=== PATIENT | male | born 1985 | race Caucasian/White ===

== ENCOUNTER 2017-05-18 21:28 | Emergency (ER) | payer OTHER ==
[2017-05-18 21:46] VITALS: BMI 36.3
[2017-05-18] MEDS ORDERED: DIPHTH,PERTUSS(ACELL),TET 0.5 ML DISP.SYRIN IM ONE (21:46)
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
[2017-05-19] MEDS ORDERED: ACETAMINOPHEN 325 MG TABLET (FP) PO ONE (00:56)
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
[2017-05-19] MEDS ORDERED: ACETAMINOPHEN 325 MG TABLET (FP) ONE (00:59)
[2017-05-19 01:28] VITALS: BP 142/96; PULSE 98; TEMP 98
== END 2017-05-19 02:34 | disposition home or self-care (01) ==
LOC: JER 21:28
PROC: 3E0234Z Introduction of Serum, Toxoid and Vaccine into Muscle, Percutaneous Approach (ICD-10-PCS; principal; 2017-05-18)
DX: S00.83XA Contusion of other part of head, initial encounter (principal); S00.31XA Abrasion of nose, initial encounter; Y04.2XXA Assault by strike against or bumped into by another person, initial encounter; Y93.89 Activity, other specified; Y92.198 Other place in other specified residential institution as the place of occurrence of the external cause; Y99.8 Other external cause status; F70 Mild intellectual disabilities
CPT/HCPCS: 70450-TC; 70486-TC; 90715; 99282-25

== ENCOUNTER 2017-08-09 16:41 | Emergency (ER) | payer OTHER ==
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
[2017-08-09 16:49] VITALS: BP 134/83; PULSE 84; TEMP 98; BMI 36.3
[2017-08-09] MEDS ORDERED: TETANUS AND DIPHTHERIA TOXOID 0.5 ML DISP.SYRIN IM ONE (16:50)
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
[2017-08-09] MEDS ORDERED: DIPHTH,PERTUSS(ACELL),TET 0.5 ML DISP.SYRIN IM ONE (18:02)
== END 2017-08-09 18:23 | disposition home or self-care (01) ==
LOC: JERFT 16:41
PROC: 3E0234Z Introduction of Serum, Toxoid and Vaccine into Muscle, Percutaneous Approach (ICD-10-PCS; principal; 2017-08-09)
DX: S00.87XA Other superficial bite of other part of head, initial encounter (principal); Y04.1XXA Assault by human bite, initial encounter; Y93.89 Activity, other specified; Y92.198 Other place in other specified residential institution as the place of occurrence of the external cause; Y99.8 Other external cause status; F70 Mild intellectual disabilities; F20.9 Schizophrenia, unspecified; F91.8 Other conduct disorders
CPT/HCPCS: 90471; 90715; 99281-25

== ENCOUNTER 2018-04-14 19:26 | Observation (INO) | payer OTHER ==
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
[2018-04-14] MEDS ORDERED: ONDANSETRON 4 MG/2 ML VIAL ONE (19:43)
[2018-04-14] MEDS ORDERED: morphine CARPU-JECT 4 MG/1 ML DISP.SYRIN IVPUSH ONE (19:48)
[2018-04-14] MEDS ORDERED: KETOROLAC TROMETHAMINE 30 MG/1 ML VIAL IVPUSH ONE (19:48)
[2018-04-14] MEDS ORDERED: KETOROLAC TROMETHAMINE 30 MG/1 ML VIAL ONE (19:52)
[2018-04-14] MEDS ORDERED: morphine SULFATE 4 MG/ML VIAL ONE (19:52)
[2018-04-14] MEDS ORDERED: SODIUM CHLORIDE 1,000 ML IV SCH (20:00)
[2018-04-14 20:24] LABS: BASO % 1.1 % (0-2.0); EOS % 1.1 % (0-4.5); HEMATOCRIT 40.5 % (35.4-49); HEMOGLOBIN 13.6 GM/dl (11.7-16.9); LYMPH % 14.6 % (8-40); MCH 29.4 pg (25.7-33.7); MCHC 33.6 g/dl (32.0-35.9); MEAN CELL VOLUME 87.4 fl (80-96); MEAN PLT VOLUME 8.3 fl (7.5-11.1); NEUT % 71.2 % (42.8-82.8); PLATELET COUNT 196 K/MM3 (134-434); RBC 4.64 M/mm3 (4.00-5.60); RDW 13.4 % (11.9-15.9); WHITE BLOOD COUNT 9.5 K/mm3 (4.0-10.8)
[2018-04-14 20:35] LABS: ALBUMIN 3.7 g/dl (3.5-5.0); ALK PHOS 40 U/L (32-92); ANION GAP 8 MMOL/L (8-16); BILIRUBIN,TOTAL 1.1 mg/dl (0.2-1.0); BLOOD UREA NITROGEN 12 mg/dl (7-18); CALCIUM 8.6 mg/dl (8.4-10.2); CHLORIDE 102 mmol/L (98-107); CO2 28 mmol/L (22-28); CREATININE 1.1 mg/dl (0.6-1.3); GLUCOSE,RANDOM 117 mg/dl (74-106); POTASSIUM 3.9 mmol/L (3.5-5.1); SGOT/AST 23 U/L (10-42); SGPT/ALT 24 U/L (10-40); SODIUM 138 mmol/L (136-145); TOT PROT 7.5 g/dl (6.4-8.3)
[2018-04-14 22:15] LABS: LIPASE 84 U/L (73-393)
[2018-04-14] MEDS ORDERED: PIPERACILLIN/TAZOB 4.5 GM 4.5 GM in DEXTROSE 5%-WATER 100 ML IVPB ONE (22:21)
[2018-04-14] MEDS ORDERED: PIPERACILLIN/TAZOBACTAM 4.5 GM VIAL IVPB ONE (22:23)
[2018-04-14 22:50] LABS: PH,URINE 6.5 (4.5-8); URINE APPEARANCE Clear; URINE BILIRUBIN 1+ (NEGATIVE); URINE COLOR Light; URINE GLUCOSE (UA) Negative (NEGATIVE); URINE KETONE Negative (NEGATIVE); URINE LEUK ESTERASE Negative (NEGATIVE); URINE NITRITE Negative (NEGATIVE); URINE PROTEIN 1+ (NEGATIVE); URINE UROBILINOGEN >=8.0 E.U./dl (0.2-1.0)
[2018-04-14 23:01] LABS: URINE BACTERIA 1+ /hpf (NEGATIVE); URINE RBC 0-1 /hpf (0-3); URINE WBC 0-2 (0-2)
[2018-04-15] MEDS: DEXTROSE 5%-0.45% SALINE 1,000 ML IV SCH (01:15)
[2018-04-15 01:18] VITALS: BMI 33.9
[2018-04-15 08:56] LABS: BASO % 0.3 % (0-2.0); EOS % 1.8 % (0-4.5); HEMATOCRIT 36.1 % (35.4-49); HEMOGLOBIN 12.2 GM/dl (11.7-16.9); LYMPH % 16.4 % (8-40); MCH 29.7 pg (25.7-33.7); MCHC 33.7 g/dl (32.0-35.9); MEAN PLT VOLUME 8.4 fl (7.5-11.1); MONO % 17.5 % (3.8-10.2); PLATELET COUNT 177 K/MM3 (134-434); RBC 4.11 M/mm3 (4.00-5.60); RDW 13.4 % (11.9-15.9)
--- NOTE | 2018-04-15 10:08 | HP ---
CHIEF COMPLAINT:abd pain PCP: HISTORY OF PRESENT ILLNESS: Julio C Juarez is a 33 year old male, presented to ED yesterday for evaluation of abdominal pain. History given by caregiver due to patients mental disability. The patients caregiver reported that the patients pain began Thurs and is most prominent in the right upper quadrant. The patients caregiver also noted that the patient has had a decreased appetite with his last meal being last night. The caregiver reported that the patient went for routine blood work and the caregiver was told that the patient had an increased white count. patient seen at bedside this morning, no caregiver present, pt points to Right side of abd, states "I have pain." , with eyes closed, non-tender on palpation, no facial grimacing. denies n/v, chills, headache, dizziness, Labs reviewed this am, No leukocytosis, afebrile ER course was notable for: (1)elevated Bili (2)US showing cholelithiasis w/some GB thickening (3)CT scan thickening of transverse colon, no perforation Recent Travel: PAST MEDICAL HISTORY:mild mental retardation, Schizophrenia, disruptive behaviour disorder, PAST SURGICAL HISTORY:none Social History: Lives at [facility] Smoking:denies Alcohol:denies Drugs: denies Family History: Allergies No Known Allergies Allergy (Verified 08/09/17 16:44) HOME MEDICATIONS: Home Medications Medication Instructions Recorded BUPROPion HCL "SR" [Wellbutrin Sr 150 mg PO DAILY 01/12/15 -] Benztropine Mesylate [Cogentin -] 0.5 mg PO BID 01/12/15 Cholecalciferol (Vitamin D3) 2,000 unit PO DAILY 01/12/15 [Vitamin D3 -] Lurasidone HCl [Latuda] 120 mg PO HS 01/12/15 [place]-3S/Dha/Epa/Fish Oil [Fish 1 each PO BID 01/12/[address] 1,000 mg Softgel] Terbinafine [Lamisil At] 6 gm TP BID 01/12/15 Bupropion HCl [Wellbutrin Xl -] 150 mg PO DAILY 04/14/18 Divalproex Sodium [Divalproex 1,000 mg PO BID 04/14/18 Sodium ER] [place] Carbonate [Eskalith -] 450 mg PO DAILY 04/14/18 Selenium Sulfide [Selenium Sulfide 1 applic TP WEEKLY 04/14/18 2.25% Shampoo] REVIEW OF SYSTEMS CONSTITUTIONAL: Absent: fever, chills, diaphoresis, generalized weakness, malaise, loss of appetite, weight change HEENT: Absent: rhinorrhea, nasal congestion, throat pain, throat swelling, difficulty swallowing, mouth swelling, ear pain, eye pain, visual changes CARDIOVASCULAR: Absent: chest pain, syncope, palpitations, irregular heart rate, lightheadedness , peripheral edema RESPIRATORY: Absent: cough, shortness of breath, dyspnea with exertion, orthopnea, wheezing, stridor, hemoptysis GASTROINTESTINAL: Absent: abdominal pain, abdominal distension, nausea, vomiting, diarrhea, constipation, melena, hematochezia GENITOURINARY: Absent: dysuria, frequency, urgency, hesitancy, hematuria, flank pain, genital pain MUSCULOSKELETAL: Absent: myalgia, arthralgia, joint swelling, back pain, neck pain SKIN: Absent: rash, itching, pallor HEMATOLOGIC/IMMUNOLOGIC: Absent: easy bleeding, easy bruising, lymphadenopathy, frequent infections ENDOCRINE: Absent: unexplained weight gain, unexplained weight loss, heat intolerance, cold intolerance NEUROLOGIC: Absent: headache, focal weakness or paresthesias, dizziness, unsteady gait, seizure, mental status changes, bladder or bowel incontinence PSYCHIATRIC: Absent: anxiety, depression, suicidal or homicidal ideation, hallucinations. PHYSICAL EXAMINATION Vital Signs - 24 hr 04/14/18 04/14/18 04/15/18 19:42 23:47 00:05 Temperature 98.7 F 98.2 F 98.1 F Pulse Rate 92 H 80 Pulse Rate [ 77 Radial] Respiratory 18 16 16 Rate Blood Pressure 124/73 119/81 Blood Pressure 125/84 [Arm] O2 Sat by Pulse 98 100 Oximetry (%) 04/15/18 04/15/18 04/15/18 01:01 06:48 09:00 Temperature 98.2 F 98.7 F Pulse Rate 80 77 Pulse Rate [ Radial] Respiratory 16 16 16 Rate Blood Pressure 119/81 111/68 Blood Pressure [Arm] O2 Sat by Pulse 99 99 Oximetry (%) GENERAL: Awake, alert, and fully oriented, in no acute distress. HEAD: Normal with no signs of trauma. EYES: Pupils equal, round and reactive to light, extraocular movements intact, sclera anicteric, conjunctiva clear. No lid lag. EARS, NOSE, THROAT: Ears normal, nares patent, oropharynx clear without exudates. Moist mucous membranes. NECK: Normal range of motion, supple without lymphadenopathy, JVD, or masses. LUNGS: Breath sounds equal, clear to auscultation bilaterally. No wheezes, and no crackles. No accessory muscle use. HEART: Regular rate and rhythm, normal S1 and S2 without murmur, rub or gallop. ABDOMEN: Soft, nontender, not distended, normoactive bowel sounds, no guarding, no rebound, no masses. No hepatomegaly or splenomegaly. MUSCULOSKELETAL: Normal range of motion at all joints. No bony deformities or tenderness. No CVA tenderness. UPPER EXTREMITIES: 2+ pulses, warm, well-perfused. No cyanosis. No clubbing. No peripheral edema. LOWER EXTREMITIES: 2+ pulses, warm, well-perfused. No calf tenderness. No peripheral edema. NEUROLOGICAL: Cranial nerves II-XII intact. Normal speech. Normal gait. PSYCHIATRIC: Cooperative. Good eye contact. Appropriate mood and affect. SKIN: Warm, dry, normal turgor, no rashes or lesions noted, normal capillary refill. Laboratory Results - last 24 hr 04/14/18 04/14/18 04/14/18 19:46 19:46 22:44 WBC 9.5 RBC 4.64 Hgb 13.6 Hct 40.5 MCV 87.4 MCH 29.4 MCHC 33.6 RDW 13.4 Plt Count 196 MPV 8.3 Absolute Neuts (auto) 6.8 Neutrophils % 71.2 Lymphocytes % 14.6 Monocytes % 12.0 H Eosinophils % 1.1 Basophils % 1.1 Sodium 138 Potassium 3.9 Chloride 102 Carbon Dioxide 28 Anion Gap 8 BUN 12 Creatinine 1.1 Creat Clearance w eGFR > 60 Random Glucose 117 H Calcium 8.6 Total Bilirubin 1.1 H AST 23 ALT 24 Alkaline Phosphatase 40 Total Protein 7.5 Albumin 3.7 Lipase 84 Urine Color Light Urine Appearance Clear Urine pH 6.5 Ur Specific [place] 1.020 Urine Protein 1+ H Urine Glucose (UA) Negative Urine Ketones Negative Urine Blood Negative Urine Nitrite Negative Urine Bilirubin 1+ H Urine Urobilinogen >=8.0 e.u./dl Ur Leukocyte Esterase Negative Urine RBC 0-1 Urine WBC 0-2 Urine Bacteria 1+ 04/15/18 07:25 WBC 6.0 RBC 4.11 Hgb 12.2 Hct 36.1 MCV 88.0 MCH 29.7 MCHC 33.7 RDW 13.4 Plt Count 177 MPV 8.4 Absolute Neuts (auto) 3.8 Neutrophils % 64.0 Lymphocytes % 16.4 Monocytes % 17.5 H Eosinophils % 1.8 Basophils % 0.3 Sodium Potassium Chloride Carbon Dioxide Anion Gap BUN Creatinine Creat Clearance w eGFR Random Glucose Calcium Total Bilirubin AST ALT Alkaline Phosphatase Total Protein Albumin Lipase Urine Color Urine Appearance Urine pH Ur Specific [place] Urine Protein Urine Glucose (UA) Urine Ketones Urine Blood Urine Nitrite Urine Bilirubin Urine Urobilinogen Ur Leukocyte Esterase Urine RBC Urine WBC Urine Bacteria ASSESSMENT/PLAN: Julio C Juarez is a 33 year old male medical condition Schizophrenia, mild MR , disruptive behaviour admitted under observation for Admitting Daignosis Cholelithiasis Active Problems Schizophrenia Psychotic disorder A/P: #RUQ abd pain-Cholelithiasis -NPO -IVF -paing mgt -Sx consult -US, CT scan reviewed -cont with IV zosyn BID -blood cx pending #Schizphrenia #Psyche Disorder -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 - New Patient This patient is new to me today: Yes Date on this admission: 04/15/18 - Critical Care Critical Care patient: No
[2018-04-15] MEDS ORDERED: PIPERACILLIN/TAZOB 4.5 GM 4.5 GM in DEXTROSE 5%-WATER 100 ML IVPB SCH (10:30)
[2018-04-15] MEDS ORDERED: DIVALPROEX NA *ER* EXTEND REL 500 MG TABLET.SA (FP) PO SCH (10:30)
[2018-04-15] MEDS: BENZTROPINE MESYLATE 0.5 MG TABLET (FP) PO SCH ×2 (10:49→23:55)
[2018-04-15] MEDS ORDERED: PT OWN MED DRAWER 7, Y5N ONE ×3 (12:43→23:58)
[2018-04-15] MEDS ORDERED: PIPERACILLIN/TAZOBACTAM 4.5 GM VIAL IVPB ONE (12:44)
[2018-04-15] MEDS ORDERED: DEXTROSE 5%-WATER 100 ML IVPB ONE (12:44)
[2018-04-15] MEDS: DIVALPROEX SODIUM 500 MG TABLET E.C. PO SCH ×2 (13:30→22:25)
[2018-04-15] MEDS ORDERED: CIPROFLOXACIN 400 MG/D5W 400 MG/200 ML IVPB IVPB ONE (17:15)
[2018-04-15] MEDS ORDERED: CIPROFLOXACIN 400 MG/D5W 400 MG/200 ML IVPB IVPB SCH (22:00)
[2018-04-15] MEDS ORDERED: LURASIDONE HCL 40 MG TABLET PO SCH (22:00)
[2018-04-16] MEDS: DEXTROSE 5%-0.45% SALINE 1,000 ML IV SCH
[2018-04-16] MEDS ORDERED: PT OWN MED DRAWER 7, Y5N ONE (09:32)
[2018-04-16 09:41] LABS: BASO % 0.6 % (0-2.0); EOS % 2.6 % (0-4.5); HEMATOCRIT 36.8 % (35.4-49); HEMOGLOBIN 11.9 GM/dl (11.7-16.9); LYMPH % 22.3 % (8-40); MCH 28.8 pg (25.7-33.7); MCHC 32.5 g/dl (32.0-35.9); MEAN CELL VOLUME 88.7 fl (80-96); MEAN PLT VOLUME 8.2 fl (7.5-11.1); MONO % 12.8 % (3.8-10.2); NEUT % 61.7 % (42.8-82.8); PLATELET COUNT 230 K/MM3 (134-434); RBC 4.15 M/mm3 (4.00-5.60); RDW 13.3 % (11.9-15.9); WHITE BLOOD COUNT 6.8 K/mm3 (4.0-10.8)
[2018-04-16] MEDS: BENZTROPINE MESYLATE 0.5 MG TABLET (FP) PO SCH (09:45)
[2018-04-16] MEDS: DIVALPROEX SODIUM 500 MG TABLET E.C. PO SCH (09:45)
[2018-04-16 09:50] LABS: ALBUMIN 3.3 g/dl (3.5-5.0); ALK PHOS 75 U/L (32-92); ANION GAP 11 MMOL/L (8-16); BILIRUBIN,TOTAL 0.9 mg/dl (0.2-1.0); BLOOD UREA NITROGEN 11 mg/dl (7-18); CALCIUM 8.5 mg/dl (8.4-10.2); CHLORIDE 105 mmol/L (98-107); CO2 23 mmol/L (22-28); CREATININE 0.8 mg/dl (0.6-1.3); GLUCOSE,RANDOM 67 mg/dl (74-106); MAGNESIUM 1.9 mg/dL (1.8-2.4); POTASSIUM 4.1 mmol/L (3.5-5.1); SGOT/AST 59 U/L (10-42); SGPT/ALT 94 U/L (10-40); SODIUM 139 mmol/L (136-145); TOT PROT 6.9 g/dl (6.4-8.3)
[2018-04-16] MEDS ORDERED: CIPROFLOXACIN 400 MG/D5W 400 MG/200 ML IVPB IVPB SCH (11:15)
--- NOTE | 2018-04-16 14:32 | CONS ---
DATE OF CONSULTATION: DATE OF DICTATION: 04/16/2018 The patient is a 33-year-old male who was evaluated for abdominal pain syndrome. He was admitted from his shelter on April 14, 2018, with complaints of abdominal pain. Patient reported right upper quadrant abdominal pain and was noted to have poor oral intake. He was evaluated at the hospital, where his ultrasound showed cholelithiasis with a common bile duct slightly dilated at 0.8 cm. The gallbladder was contracted. A CT scan of the abdomen and pelvis showed concentric wall thickening of the transverse colon, possible acute diverticulitis, although no definitive diverticulum was visualized on the examination. Cultures were obtained. He was empirically treated with ciprofloxacin and Flagyl. A surgical evaluation has been requested. At the present time, he is awake and responsive. He has no focal complaint. He denies any abdominal pain at the present time. He has been afebrile with a normal white blood cell count. Cultures are pending. PAST MEDICAL HISTORY: Positive for mental retardation, schizophrenia. No known allergies. MEDICATIONS: Ciprofloxacin; Flagyl; Cogentin; Depakote; Wellbutrin. SOCIAL HISTORY: The patient resides in a shelter. He is a nonsmoker, nondrinker. LABORATORY DATA: White count 6.0. Lipase 84. BUN 11, creatinine 0.8. Cultures are pending. PHYSICAL EXAMINATION: General: He is awake and responsive, in no acute distress. Vital Signs: Temperature 99.0, blood pressure 109/66, pulse 77 and regular, respirations 18/min. HEENT: Sclerae anicteric. Heart Sounds: S1, S2. Lungs: Clear. Abdomen: Soft. No tenderness elicited. No mass, rebound, or rigidity. Extremities: Negative for edema. IMPRESSION: 1. Abdominal pain syndrome. 2. Colitis by CT scan. 3. Cholelithiasis. Await cultures, continue empiric coverage of gastrointestinal pathogens with ciprofloxacin and Flagyl, surgical evaluation. Thank you for the kind referral. RAKESH GOOD M.D. [id number]
[2018-04-16 14:37] VITALS: BP 131/72; PULSE 86; TEMP 98.2
--- NOTE | 2018-04-16 15:22 | DS ---
Physical Exam: SUBJECTIVE: Patient seen and examined, denies abd pain, n/v, tolerated GI soft diet, blood cx shows no growth, labs unremarkable. afebrile. pt can follow up with [facility] , Dr. Welsh as outpatient for further work up. Spoke to Sarai (Head Nurse) at [facility]. OBJECTIVE: Vital Signs Period Temp Pulse Resp BP Sys/Holder Pulse Ox Last 24 Hr 98 F-99.0 F 71-88 17-19 104-131/61-73 93-96 PHYSICAL EXAM GENERAL: The patient is awake, alert, and fully oriented, in no acute distress. HEAD: Normal with no signs of trauma. EYES: PERRL, extraocular movements intact, sclera anicteric, conjunctiva clear. ENT: Ears normal, nares patent, oropharynx clear without exudates, moist mucous membranes. NECK: Trachea midline, full range of motion, supple. LUNGS: Breath sounds equal, clear to auscultation bilaterally, no wheezes, no crackles, no accessory muscle use. HEART: Regular rate and rhythm, S1, S2 without murmur, rub or gallop. ABDOMEN: Soft, nontender, nondistended, normoactive bowel sounds, no guarding, no rebound, no hepatosplenomegaly, no masses. EXTREMITIES: 2+ pulses, warm, well-perfused, no edema. NEUROLOGICAL: Cranial nerves II through XII grossly intact. Normal speech, gait not observed. PSYCH: Normal mood, normal affect. SKIN: Warm, dry, normal turgor, no rashes or lesions noted. LABS Laboratory Results - last 24 hr 04/16/18 04/16/18 08:00 08:00 WBC 6.8 RBC 4.15 Hgb 11.9 Hct 36.8 MCV 88.7 MCH 28.8 MCHC 32.5 RDW 13.3 Plt Count 230 D MPV 8.2 Absolute Neuts (auto) 4.2 Neutrophils % 61.7 Lymphocytes % 22.3 D Monocytes % 12.8 H Eosinophils % 2.6 Basophils % 0.6 Sodium 139 Potassium 4.1 Chloride 105 Carbon Dioxide 23 Anion Gap 11 BUN 11 Creatinine 0.8 Creat Clearance w eGFR > 60 Random Glucose 67 L D Calcium 8.5 Magnesium 1.9 Total Bilirubin 0.9 AST 59 H D ALT 94 H D Alkaline Phosphatase 75 D Total Protein 6.9 Albumin 3.3 L HOSPITAL COURSE: Date of Admission:04/15/18 Date of Discharge: 04/16/18 Julio C Juarez is a 33 year old male medical condition Schizophrenia, mild MR , disruptive behaviour admitted under observation for Admitting Daignosis Cholelithiasis Active Problems Schizophrenia Psychotic disorder A/P: #RUQ abd skem-Bujsnfhsjvpyiz-aootfall -tolerating GI soft diet -pt remains pain free, no n/v, diarrhea, -US, CT scan reviewed, follow up with GI as outpatient CBD mildly dilated 0.9mm -cipro and flagyl changed to po to take for 7 days -blood cx no growth #Schizophrenia #Psyche Disorder -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 Take Cipro and Flagyl antibiotics as directed Follow up with Dr. Welsh (Regional Director) Referrals: Oscar Welsh MD [Staff Physician] - 1 Week (follow up for acute diverticulitis , CT Scan results, ) Cindy Mitchell [Primary Care Provider] - 1 Week Disposition: HOME - Home Medications Comprehensive Discharge Medication List: Ambulatory Orders BUPROPion HCL "SR" [Wellbutrin Sr -] 150 mg PO DAILY 01/12/15 Benztropine Mesylate [Cogentin -] 0.5 mg PO BID 01/12/15 Cholecalciferol (Vitamin D3) [Vitamin D3 -] 2,000 unit PO DAILY 01/12/15 Lurasidone HCl [Latuda] 120 mg PO HS 01/12/15 [place]-3S/Dha/Epa/Fish Oil [Fish Oil Dr 1,000 mg Softgel] 1 each PO BID 01/12/15 Terbinafine [Lamisil At] 6 gm TP BID 01/12/15 Bupropion HCl [Wellbutrin Xl -] 150 mg PO DAILY 04/14/18 Divalproex Sodium [Divalproex Sodium ER] 1,000 mg PO BID 04/14/18 [place] Carbonate [Eskalith -] 450 mg PO DAILY 04/14/18 Selenium Sulfide [Selenium Sulfide 2.25% Shampoo] 1 applic TP WEEKLY 04/14/18 Ciprofloxacin HCl [Cipro] 500 mg PO BID 7 Days #14 tablet 04/16/18 Divalproex [Depakote -] 1,000 mg PO BID tablet.ec 04/16/18 metroNIDAZOLE [Flagyl -] 500 mg PO DAILY #7 tablet 04/16/18 This patient is new to me today: No Emergency Visit: Yes ED Registration Date: 04/15/18 Care time: The patient presented to the Emergency Department on the above date and was hospitalized for further evaluation of their emergent condition. Critical Care patient: No - Discharge Referral Referred to [facility] Med P.C.: No
--- NOTE | 2018-04-16 16:37 | PN ---
Progress Note (short form) - Note Progress Note: surgery spoke with Dr. Lowry and ed physician. 33m with contracted gallbladder and stones with initial concern for acute cholecystitis. Contracted gb not consistent with acute cholecystisis and thus requested ct to look for other pathology. Ct confirmed colitis of proximal transverse colon without inflammation of gb. pt treated with cipro and flagyl per id. also noted to have a dilated cbd with normal lfts. consider gi eval for colonoscopy and eus. as patient now well this could be done as outpt. no indication for inpatient surgery.
== END 2018-04-16 18:00 | disposition home or self-care (01) ==
LOC: FER 19:26 → FM/S 23:54 → UNDOADMOB 04-15 00:12 → FM/S 04-15 00:12
PROVIDERS: ADMIT Internal Medicine; ATTEND Nurse Practitioner Family
PROC: 3E0337Z Introduction of Electrolytic and Water Balance Substance into Peripheral Vein, Percutaneous Approach (ICD-10-PCS; principal; 2018-04-14)
PROC: 3E03329 Introduction of Other Anti-infective into Peripheral Vein, Percutaneous Approach (ICD-10-PCS; 2018-04-14)
PROC: 3E03329 Introduction of Other Anti-infective into Peripheral Vein, Percutaneous Approach (ICD-10-PCS; 2018-04-14)
DX: K80.20 Calculus of gallbladder without cholecystitis without obstruction (principal); K52.9 Noninfective gastroenteritis and colitis, unspecified; R74.8 Abnormal levels of other serum enzymes; F20.9 Schizophrenia, unspecified; F79 Unspecified intellectual disabilities
CPT/HCPCS: 36415; 71046-TC-FY; 74176-TC; 76705-TC; 80048; 80053; 80164; 81003; 81015; 83690; 83735; 85025; 87040; 96374; 96375; 99283-25; G0378; J7030

== ENCOUNTER 2018-07-11 21:59 | Emergency (ER) | payer OTHER ==
[2018-07-11 22:05] VITALS: BP 127/87; PULSE 83; TEMP 97.7; BMI 35.5
--- NOTE | 2018-07-11 22:17 | PDOC ---
History of Present Illness - General History Source: Patient Exam Limitations: No Limitations - General Chief Complaint: Pain, Acute Stated Complaint: CHEST PAIN X 4 DAYS Time Seen by Provider: 07/11/18 22:02 - History of Present Illness Initial Comments: 07/11/18 22:26 The patient is a 33 year old male who presents to the emergency department for evaluation of chest pain. The patient reports 1 episode of non pleuritic left sided chest pain this afternoon. He notes the pain is exacerbated with movement of arms and walking. Denies recent strenuous activity or stressors. Patient denies taking any medication for the aforementioned pain. The patient denies shortness of breath, diaphoresis, headache, dizziness, fevers , chills, nausea, and vomiting. PAST MEDICAL HISTORY: mild retardation, disruptive behavior disorder, psychotic disorder, schizophrenia PAST SURGICAL HISTORY: no significant history FAMILY HISTORY: States mother passed from [place] around age 60. SOCIAL HISTORY: Pt lives in [facility]. No reported alcohol, cigarette, or drug use. MEDICATIONS: reviewed ALLERGIES: As per nursing notes ROS General: No fevers or chills, no weakness, no weight loss HEENT: No change in vision. No sore throat,. No ear pain Cardiovascular: (+)chest pain. No shortness of breath Respiratory:No cough, or wheezing. Gastrointestinal: no nausea, vomiting, diarrhea or constipation, No rectal bleeding Genitourinary: No dysuria, hematuria, or frequency Musculoskeletal: No joint or muscle pain or swelling Neurologic: No headache, vertigo, dizziness or loss of consciousness Psychiatric: nor depression Skin: No rashes or easy bruising Endocrine: no increased thirst or abnormal weight change Allergic: no skin or latex allergy All other systems reviewed and normal Physical Exam: General: Well-nourished well-developed individual, no acute distress HEENT: Throat: Normal, tonsils normal, no erythema or exudate Neck: Supple, no meningeal signs, no lymphadenopathy Eyes:Pupils equal reactive and round, extraocular motion intact Chest: Nontender to palpation Cardiac: S1-S2 normal, regular rate and rhythm, no murmurs rubs or gallops Respiratory: Lungs clear to auscultation bilateral Abdomen: Soft, nondistended, normal bowel sounds, nontender to palpation diffusely Extremities: Warm, dry, no cyanosis, clubbing, or edema Skin: No rashes Neuro: Alert and oriented x3, nonfocal exam, grossly intact, normal gait Psych: Normal mood and affect (Zenon James) A portion of this note was documented by scribe services under my direction. I have reviewed the details of the note, within reason, and agree with the documentation with the following case summary and management plan written by me. Patient treated in the ED. Nursing notes are reviewed and incorporated into the medical decision-making. Vital signs reviewed. Assessment and plan: This is a 33-year-old male who comes in complaining of left-sided chest pain 4 days. Patient said pain is worse when he moves. Patient said otherwise he doesn' t have pain. Patient has no associated symptoms of nausea, diaphoresis, shortness of breath, cough, congestion Patient lives in a fdc and has behavioral issues and is on a multitude of psychiatric medications EKG was abnormal in that it had her incomplete right bundle lissette block and left anterior hemiblock. Otherwise no acute ST-T wave changes. Patient's heart score was 2 with a negative troponin Patient discharged back to his fdc with instructions to follow up with his primary care doctor 07/11/18 23:01 (Truman Kang I) Past History - Past Medical History COPD: No Psychiatric Problems: Yes (MILD MMR, PSYCHOTIC DISORDER, SCHIZOPHRENIA, DISRUPTIVE BEHAVIOR DISORDER) - Suicide/Smoking/Psychosocial Hx Smoking History: Never smoked Have you smoked in the past 12 months: No Hx Alcohol Use: No Drug/Substance Use Hx: No Substance Use Type: None - Past Medical History Allergies/Adverse Reactions: Allergies Allergy/AdvReac Type Severity Reaction Status Date / Time No Known Allergies Allergy Verified 07/11/18 22:01 Home Medications: Ambulatory Orders BUPROPion HCL "SR" [Wellbutrin Sr -] 150 mg PO DAILY 01/12/15 Benztropine Mesylate [Cogentin -] 0.5 mg PO BID 01/12/15 Cholecalciferol (Vitamin D3) [Vitamin D3 -] 2,000 unit PO DAILY 01/12/15 Lurasidone HCl [Latuda] 120 mg PO HS 01/12/15 [place]-3S/Dha/Epa/Fish Oil [Fish Oil Dr 1,000 mg Softgel] 1 each PO BID 01/12/15 Terbinafine [Lamisil At] 6 gm TP BID 01/12/15 Bupropion HCl [Wellbutrin Xl -] 150 mg PO DAILY 04/14/18 Divalproex Sodium [Divalproex Sodium ER] 1,000 mg PO BID 04/14/18 [place] Carbonate [Eskalith -] 450 mg PO DAILY 04/14/18 Selenium Sulfide [Selenium Sulfide 2.25% Shampoo] 1 applic TP WEEKLY 04/14/18 Ciprofloxacin HCl 500 mg PO BID #14 tablet 04/16/18 Divalproex [Depakote -] 1,000 mg PO BID tablet.ec 04/16/18 Metronidazole 500 mg PO TID #21 tablet 04/16/18 - Vital Signs Last Vital Signs Temp Pulse Resp BP Pulse Ox 97.7 F 83 16 127/87 99 07/11/18 22:02 07/11/18 22:02 07/11/18 22:02 07/11/18 22:02 07/11/18 22:02 Heart Score/ECG Review - History History: Slightly suspicious - Electrocardiogram EKG: Non specific repolarization disturbance - Age Age: </= 45 - Risk Factors Risk Factors Heart Score: Yes Positive family hx of cardiac disease Based on the list above the patient has:: 1-2 risk factors - Troponin Troponin: </= normal limit - Score Heart Score - Total: 2 - Procedure Monitoring Vital Signs: Procedure Monitoring Vital Signs Temperature 97.7 F 07/11/18 22:02 Pulse Rate 83 07/11/18 22:02 Respiratory Rate 16 07/11/18 22:02 Blood Pressure 127/87 07/11/18 22:02 O2 Sat by Pulse Oximetry (%) 99 07/11/18 22:02 - Medications Given in the ED: ED Medications Discontinued Medications Generic Name Dose Route Start Last Admin Trade Name Freq PRN Reason Stop Dose Admin Ibuprofen 600 mg 07/11/18 22:44 07/11/18 22:48 Motrin - PO 07/11/18 22:45 600 mg ONCE ONE Administration *DC/Admit/Observation/Transfer - Discharge Dispostion Decision to Admit order: No Diagnosis at time of Disposition: Muscular chest pain - Discharge Dispostion Disposition: HOME Condition at time of disposition: Stable - Patient Instructions Additional Instructions: For the pain take Motrin or Tylenol as directed on the bottle. If pain persists follow-up with a director quality assurance. Return to the emergency department immediately with ANY new, persistent or worsening symptoms. Continue any medications as previously prescribed by your physician. You should follow up with your primary doctor as soon as possible regarding today's emergency department visit. . Please make sure your doctor reviews the results of your emergency evaluation. Thank you for coming to the Emergency Department today for your care. It was a pleasure to see you today. Please note that your evaluation is INCOMPLETE until you follow-up with your doctor. - Attestations Scribe Attestion: 07/11/18 22:29 Documentation prepared by Zenon James, acting as medical laboratory technologist for Truman Kang MD. (Zenon James)
[2018-07-11] MEDS ORDERED: IBUPROFEN 600 MG TABLET (FP) PO ONE ×2 (22:44→22:45)
--- NOTE | 2018-07-12 10:10 | EKG ---
Test Reason : Blood Pressure : / mmHG Vent. Rate : 081 BPM Atrial Rate : 081 BPM P-R Int : 184 ms QRS Dur : 104 ms QT Int : 360 ms P-R-T Axes : 066 -50 012 degrees QTc Int : 418 ms NORMAL SINUS RHYTHM INCOMPLETE RIGHT BUNDLE BRANCH BLOCK LEFT ANTERIOR FASCICULAR BLOCK MINIMAL VOLTAGE CRITERIA FOR LVH, MAY BE NORMAL VARIANT ABNORMAL ECG NO PREVIOUS ECGS AVAILABLE Confirmed by NELLI KIM, FLORENCIO ([id number]) on 07/12/2018 10:10:16 AM Referred By: DR GARCIA Confirmed By:FLORENCIO AIKEN MD
== END 2018-07-11 23:28 | disposition home or self-care (01) ==
LOC: FER 21:59
DX: R07.89 Other chest pain (principal); F20.9 Schizophrenia, unspecified; F23 Brief psychotic disorder
CPT/HCPCS: 36415; 82550; 82553; 84484; 93005; 99281-25

== ENCOUNTER 2021-01-28 17:54 | Emergency (ER) | payer OTHER ==
[2021-01-28 18:04] VITALS: BP 135/94; PULSE 111; TEMP 99.2; BMI 36.3
== END 2021-01-28 18:48 | disposition home or self-care (01) ==
LOC: FER 17:54
DX: S51.852A Open bite of left forearm, initial encounter (principal); W50.3XXA Accidental bite by another person, initial encounter
CPT/HCPCS: 99281-25

== ENCOUNTER 2021-08-27 15:59 | Emergency (ER) | payer OTHER ==
[2021-08-27 16:05] VITALS: BMI 42.7
[2021-08-27 17:42] LABS: BASO % 0.5 % (0-2.0); EOS % 2.7 % (0-4.5); HEMATOCRIT 50.6 % (35.4-49); HEMOGLOBIN 17.1 GM/dL (11.7-16.9); LYMPH % 22.6 % (8-40); MCH 28.2 pg (25.7-33.7); MCHC 33.8 g/dl (32.0-35.9); MEAN CELL VOLUME 83.4 fl (80-96); MEAN PLT VOLUME 8.4 fl (7.5-11.1); MONO % 18.1 % (3.8-10.2); NEUT % 56.1 % (42.8-82.8); PLATELET COUNT 228 10^3/uL (134-434); RBC 6.07 M/mm3 (4.00-5.60); RDW 14.9 % (11.9-15.9); WHITE BLOOD COUNT 5.3 K/mm3 (4.0-10.0)
[2021-08-27 17:50] LABS: INR 1.19 (0.83-1.09); PROTHROMBIN TIME (PATIENT) 13.7 SEC (9.7-13.0)
[2021-08-27 17:52] LABS: ACTIVATED PTT 38.1 SECONDS (25.2-36.5)
[2021-08-27 17:55] LABS: PH,URINE 6.5 (5.0-8.0); URINE APPEARANCE CLEAR; URINE BILIRUBIN NEGATIVE (NEGATIVE); URINE COLOR YELLOW; URINE GLUCOSE (UA) NEGATIVE (NEGATIVE); URINE KETONE NEGATIVE (NEGATIVE); URINE LEUK ESTERASE NEGATIVE (NEGATIVE); URINE NITRITE NEGATIVE (NEGATIVE); URINE PROTEIN NEGATIVE (NEGATIVE); URINE UROBILINOGEN 0.2 mg/dL (0.2-1.0)
[2021-08-27 18:17] LABS: CALCIUM 9.2 mg/dL (8.5-10.1)
[2021-08-27 18:18] LABS: ALBUMIN 4.2 g/dl (3.4-5.0)
[2021-08-27 18:21] LABS: BILIRUBIN,TOTAL 0.4 mg/dL (0.2-1)
[2021-08-27 18:22] LABS: TOT PROT 8.7 g/dl (6.4-8.2)
[2021-08-27 18:48] VITALS: BP 141/95; PULSE 88; TEMP 98.5
== END 2021-08-27 19:02 | disposition home or self-care (01) ==
LOC: JER 15:59
DX: I10 Essential (primary) hypertension (principal)
CPT/HCPCS: 36415; 71045-TC-FY; 80053; 81003; 84484; 85025; 85610; 85730; 87086; 93005; 93010; 99285-25

== ENCOUNTER 2023-06-16 20:43 | Emergency (ER) | payer OTHER ==
[2023-06-16 20:57] VITALS: TEMP 98.7; BMI 36.3
[2023-06-16 23:28] LABS: BASO % 0.6 % (0-2.0); EOS % 1.1 % (0-4.5); HEMATOCRIT 48.9 % (35.4-49); HEMOGLOBIN 16.7 GM/dL (11.7-16.9); MCH 28.3 pg (25.7-33.7); MCHC 34.2 g/dl (32.0-35.9); MEAN CELL VOLUME 82.8 fl (80-96); MONO % 11.8 % (3.8-10.2); NEUT % 60.5 % (42.8-82.8); PLATELET COUNT 298 10^3/uL (134-434); RDW 15.3 % (11.9-15.9); WHITE BLOOD COUNT 7.8 K/mm3 (4.0-10.0)
[2023-06-16 23:34] LABS: INR 1.03 (0.83-1.09)
[2023-06-16] MEDS ORDERED: ACETAMINOPHEN INJECTION 100 ML IVPB ONE (23:38)
[2023-06-16] MEDS: LORazepam 2 MG/ML SDV VIAL IVPUSH ONE (23:46)
[2023-06-16] MEDS: ACETAMINOPHEN 1000 MG/100 ML BAG IVPB ONE (23:46)
[2023-06-16 23:58] LABS: BLOOD UREA NITROGEN 7.8 mg/dL (7-18); CALCIUM 9.2 mg/dL (8.5-10.1)
[2023-06-17 00:03] LABS: BILIRUBIN,TOTAL 0.4 mg/dL (0.2-1); TOT PROT 8.5 g/dl (6.4-8.2)
[2023-06-17 01:20] VITALS: BP 131/89; PULSE 107; RESP 18
== END 2023-06-17 01:33 | disposition home or self-care (01) ==
LOC: JER 20:43
PROC: 3E033NZ Introduction of Analgesics, Hypnotics, Sedatives into Peripheral Vein, Percutaneous Approach (ICD-10-PCS; principal; 2023-06-16)
PROC: 3E033GC Introduction of Other Therapeutic Substance into Peripheral Vein, Percutaneous Approach (ICD-10-PCS; 2023-06-16)
DX: R00.2 Palpitations (principal); M79.10 Myalgia, unspecified site; R07.89 Other chest pain; R00.0 Tachycardia, unspecified; I10 Essential (primary) hypertension; Z20.822 Contact with and (suspected) exposure to COVID-19
CPT/HCPCS: 0241U-QW; 36415; 71046-TC-FY; 80053; 84484; 85025; 85610; 85730; 93005; 93010; 99285-25; J0131